=== PATIENT | female | born 1970 | race Caucasian/White ===

== ENCOUNTER 2018-08-22 09:14 | Emergency (ER) | payer OTHER ==
[~2018-08-22] VITALS: Ht 152.4 cm; Wt 54.4 kg
[~2018-08-22 09:14] MED LIST: ACTICIN 5% CREA60 G1 TOP; BENADRYL25 MG PO; BENTYL20 MG PO; BUSPIRONE HCL10 MG PO; CARAFATE 1 GM TA1 GM PO; CLONAZEPAM 1 MG1 M1; CLONAZEPAM PO; CYMBALTA60 MG; DARVOCET-N 1001 EACH PO; EFFEXOR 5050 MG/1 T1 PO; FLAGYL500 MG PO; FLEXERIL PO; HYDROCODONE-AP1 EAC6 PO; HYDROXYZINE PAM25 M1 PO; LEXAPRO20 MG PO; NORCO 5-325 TA1 EAC1 PO; NORCO 5-325 TA1 EACH PO; NORFLEX100 MG PO; OMEPRAZOLE40 MG PO; PANCREATIN; PEPCID20 MG PO; PERCOCET 5-3251 EACH; PERCOCET 5-3251 EACH PO; PHENERGAN 25 MG25 M1 PO; PREDNISONE 20 M20 M1 PO; PRILOSEC 20 MG20 MG PO; RANITIDINE 150150 MG PO; ROBAXIN 750 MG750 MG; TRAMADOL 50 MG50 MG PO; ULTRAM 50MG TAB50 MG PO; VALACYCLOVIR1000 MG PO; VALTREX1000 MG PO; VENTOLIN HFA INH8 GM IH; ZANTAC 150MG T150 MG PO; ZENPEP DR 20,01 EACH; ZENPEP DR 5,001 EACH PO; ZOFRAN4 MG PO; ZPAK PO; [UNRECOGNIZED DRUG - OTHER]
[2018-08-22] MEDS ORDERED: NEURONTIN600 MG PO (09:22)
[2018-08-22] MEDS ORDERED: BELBUCA300 MCG DISSOLVE (09:23)
[2018-08-22] MEDS ORDERED: ZENPEP DR 40,01 EACH PO (09:23)
[2018-08-22 10:07] LABS: ABSOLUTE BASOPHILS 0.1 thou/uL (0.0-0.2); ABSOLUTE EOSINOPHILS 0.2 thou/uL (0.0-0.7); ABSOLUTE LYMPHOCYTES 2.3 thou/uL (0.8-5.3); ABSOLUTE MONOCYTES 0.8 thou/uL (0.0-1.2); ABSOLUTE NEUTROPHILS 9.6 thou/uL (1.6-8.1); BASOPHILS 0.5 %; EOSINOPHILS 1.5 %; HEMOGLOBIN 14.1 gm/dL (12.0-15.0); LYMPHOCYTES 17.8 %; MCH 26.8 pg (26.0-34.0); MCHC 32.7 g/dL (28.0-37.0); MCV 81.9 fL (80.0-100.0); MONOCYTES 6.1 %; MPV 8.3 fl. (7.2-11.1); NUCLEATED RBCS 0 /100WBC; PLATELET COUNT* 350 thou/uL (150-400); POLYS 74.1 %; RBC 5.25 mil/uL (4.20-5.00); RDW-CV 14.3 % (10.5-14.5)
[2018-08-22 10:09] LABS: URINE BILIRUBIN NEGATIVE (Negative); URINE BLOOD TRACE (Negative); URINE CLARITY CLEAR; URINE COLOR YELLOW; URINE GLUCOSE-RANDOM NEGATIVE (Negative); URINE KETONES NEGATIVE (Negative); URINE LEUKOCYTES-REFLEX NEGATIVE (Negative); URINE NITRITE-REFLEX NEGATIVE (Negative); URINE PROTEIN NEGATIVE (Negative); URINE SPECIFIC GRAVITY 1.015 (1.005-1.030); URINE UROBILINOGEN 0.2 E.U./dl (0.2-1.0)
[2018-08-22 10:15] LABS: CALCIUM 9.2 mg/dL (8.5-10.1); CREATININE 0.8 mg/dL (0.6-1.3)
[2018-08-22 10:20] LABS: ALBUMIN 3.8 g/dL (3.4-5.0); TOTAL BILIRUBIN 0.4 mg/dL (<0.1-1.0)
[2018-08-22] MEDS ORDERED: BACTRIM DS TAB1 EACH PO (12:27)
[2018-08-22 12:37] VITALS: BP 102/64
== END 2018-08-22 12:38 | disposition home or self-care (01) ==
LOC: M.ERS 09:14
PROVIDERS: Personal Emergency Response Attendant
DX: K59.00 Constipation, unspecified (principal); I10 Essential (primary) hypertension; F17.210 Nicotine dependence, cigarettes, uncomplicated; Z88.5 Allergy status to narcotic agent; Z88.6 Allergy status to analgesic agent; Z90.710 Acquired absence of both cervix and uterus; Z90.721 Acquired absence of ovaries, unilateral